=== PATIENT | male | born 1985 | race Hispanic/Latino ===

== ENCOUNTER 2017-08-22 22:33 | Emergency (ER) | payer OTHER ==
[2017-08-22 22:34] VITALS: BMI 20.7
[2017-08-22 22:57] LABS: BASO # 0.04 K/mm3 (0.0-2.0); BASO % 0.3 % (0.0-3.0); EOS # 0.2 (0.0-0.7); EOS % 1.6 % (1.5-5.0); GRAN # 7.97 (1.4-6.5); LYMPH # 4.3 (1.2-3.4); LYMPH % 31.8 % (22.0-35.0); MEAN CELL VOLUME 91.9 fl (80.0-105.0); MEAN CORPUSCULAR HEMOGLOBIN 30.9 pg (25.0-35.0); MEAN CORPUSCULAR HGB CONC 33.7 g/dl (31.0-37.0); MONO % 7.3 % (1.0-6.0); RED CELL DISTRIBUTION WIDTH 13.3 % (11.5-14.5); WHITE BLOOD COUNT 13.5 10^3/ul (4.5-11.0)
[2017-08-22 23:11] LABS: BLOOD UREA NITROGEN 12 mg/dL (7-21); CALCIUM 9.5 mg/dL (8.4-10.5); CARBON DIOXIDE 16 mmol/L (21-33); CHLORIDE 99 mmol/L (98-107); GFR AFRICAN-AMERICAN > 60; GLUCOSE,RANDOM 106 mg/dL (70-110)
--- NOTE | 2017-08-22 23:15 | CT ---
EXAM: CT Head Without Intravenous Contrast CLINICAL HISTORY: 31 years old, male; Signs and symptoms; Altered mental status/memory loss; Confusion or disorientation; Additional info: Seizure TECHNIQUE: Axial computed tomography images of the head/brain without intravenous contrast. All CT scans at this facility use one or more dose reduction techniques, viz.: automated exposure control; ma/kV adjustment per patient size (including targeted exams where dose is matched to indication; i.e. head); or iterative reconstruction technique. COMPARISON: No relevant prior studies available. FINDINGS: Brain: No acute intracranial hemorrhage. No significant white matter disease. No edema. Ventricles: No significant ventriculomegaly. Bones: No acute displaced fracture. Sinuses: Unremarkable as visualized. No acute sinusitis. Mastoid air cells: Unremarkable as visualized. No mastoid effusion. IMPRESSION: No acute intracranial hemorrhage, or suspicious mass effect.
[2017-08-22 23:22] LABS: POTASSIUM 3.3 mmol/L (3.6-5.0); SODIUM 141 mmol/L (132-148)
[2017-08-22] MEDS ORDERED: Sodium Chloride 0.9% 1,000 ML IV STA (23:23)
--- NOTE | 2017-08-23 00:42 | ED PDOC ---
Arrival/HPI - General Chief Complaint: Seizure Time Seen by Provider: 08/22/17 22:41 Historian: Other (girlfriend) - History of Present Illness Narrative History of Present Illness (Text): 08/23/17 22:45 50 year old male, whose past medical history includes IBS and denies history of seizures, presents to the Emergency department s/p witnessed seizure around 9: 45PM. Patient was unresponsive during generalized seizure, bit his tongue, and fell backwards. No noticeable head injuries. Patient's girlfriend reports vomiting and diarrhea through out the day and states she has similar GI symptoms. Patient is currently taking Adderall. Patient's girlfriend reports the seizure lasted for 1 minute and resolved spontaneously. Patient's girlfriend reports him smoking frequently, headache early today, and chronic neck pain, but denies alcohol use, any rash, fevers, chills, chest pain, shortness of breath, abdominal pain, nausea, vomiting, or any other complaint. ROS limited due to patient's state, but answered by girlfriend. Time/Duration: 1-3 hours Symptom Onset: Sudden Activities at Onset: Light Context: Home Past Medical History - Provider Review Nursing Documentation Reviewed: Yes - Infectious Disease Hx of Infectious Diseases: None - Psychiatric Hx Substance Use: No - Anesthesia Hx Anesthesia: No Family/Social History - Physician Review Nursing Documentation Reviewed: Yes Family/Social History: No Known Family HX Smoking Status: Heavy Smoker > 10 Cigarettes Daily Hx Alcohol Use: Yes Frequency of alcohol use: Socially Hx Substance Use: No Allergies/Home Meds Allergies/Adverse Reactions: Allergies No Known Allergies Allergy (Verified 08/22/17 22:34) Home Medications: Home Meds Medication Instructions Recorded Confirmed Amphetamine Salt Combination 90 mg PO DAILY 08/22/17 08/22/17 [Adderall] Review of Systems - Physician Review All systems were reviewed & negative as marked: Yes - Review of Systems Constitutional: absent: Fevers, Other (Chills) Respiratory: absent: SOB Cardiovascular: absent: Chest Pain Gastrointestinal: Diarrhea. absent: Abdominal Pain, Nausea, Vomiting Musculoskeletal: Neck Pain Skin: absent: Rash Neurological: Headache, Seizure Physical Exam Vital Signs Reviewed: Yes Vital Signs Temp Pulse Resp BP Pulse Ox 08/23/17 01:18 19 99 08/23/17 00:56 98.0 F 98 H 17 133/71 99 08/22/17 22:49 97.8 F 105 H 20 142/97 H 95 Temperature: Afebrile Blood Pressure: Hypertensive Pulse: Tachycardic Respiratory Rate: Normal Appearance: Positive for: Well-Appearing, Non-Toxic, Comfortable Pain Distress: None Mental Status: Positive for: Lethargic (response to stimuli and follows commands ) Finger Stick Blood Glucose: 101 - Systems Exam Head: Present: Atraumatic, Normocephalic Pupils: Present: PERRL Extroacular Muscles: Present: EOMI Conjunctiva: Present: Normal Mouth: Present: Dry, Other (slight bite to tongue ) Neck: Present: Normal Range of Motion Respiratory/Chest: Present: Clear to Auscultation, Good Air Exchange. No: Respiratory Distress, Accessory Muscle Use Cardiovascular: Present: Regular Rate and Rhythm, Normal S1, S2. No: Murmurs Abdomen: Present: Normal Bowel Sounds. No: Tenderness, Distention, Peritoneal Signs Back: Present: Normal Inspection Upper Extremity: Present: Normal Inspection. No: Cyanosis, Edema Lower Extremity: Present: Normal Inspection. No: Edema Neurological: Present: GCS=15, CN II-XII Intact Skin: Present: Normal Color, Diaphoretic, Pale. No: Rashes Psychiatric: Present: Alert, Normal Insight, Lethargic, Other (slightly Posticital after seizure ) Medical Decision Making ED Course and Treatment: 08/23/17 22:50 Impression: 31 year old male presents s/p witnessed seizure. Patient was unresponsive and reports slight bite on tongue. Plan: -- Labs -- CT head -- IV fluids -- Urinalysis -- Reassess and disposition Progress Notes: EXAM: CT Head Without Intravenous Contrast Dictated and Authenticated by: Anne Cornejo MD 08/22/2017 11:14 PM IMPRESSION: No acute intracranial hemorrhage, or suspicious mass effect. 08/23/17 01:05 On re-evaluation, patient is back to normal mental status and wants to leave. Patient denies any headache, fever, or neck stiffening. doubt meningitis or SAH. Will not start on antiepileptics because first time having seizure. May be possible drug use. Patient coincidentally could not give urine. I have discussed the results and plan with the patient, who expresses understanding. Patient in agreement with plan to be discharged home. Patient is stable for discharge. Patient was instructed to follow up with neurologist or return if symptoms worsen or new concerning symptoms arise. instructed not to drive until cleared by neurology 08/23/17 05:58 Reassessment Condition: Improved - Lab Interpretations Lab Results: 08/22/17 22:48 08/22/17 22:48 Lab Results 08/22/17 22:48: Sodium 141, Potassium 3.3 L, Chloride 99, Carbon Dioxide 16 L, Anion Gap 29 H, BUN 12, Creatinine 1.0, Est GFR ( Amer) > 60, Est GFR ( Non-Af Amer) > 60, Random Glucose 106, Calcium 9.5 08/22/17 22:48: WBC 13.5 H, RBC 4.46, Hgb 13.8 L, Hct 41.0 L, MCV 91.9, MCH 30.9 , MCHC 33.7, RDW 13.3, Plt Count 317, MPV 9.0, Gran % 59.0, Lymph % (Auto) 31.8 , [place] % (Auto) 7.3 H, Eos % (Auto) 1.6, Baso % (Auto) 0.3, Gran # 7.97 H, Lymph # 4.3 H, [place] # 1.0 H, Eos # 0.2, Baso # 0.04 I have reviewed the lab results: Yes - RAD Interpretation Radiology Orders: 08/22/17 22:48 HEAD W/O CONTRAST [CT] Stat - Medication Orders Current Medication Orders: Discontinued Medications Sodium Chloride (Sodium Chloride 0.9%) 1,000 mls @ 999 mls/hr IV .Q1H1M STA Stop: 08/23/17 00:23 Last Admin: 08/22/17 23:25 Dose: 999 mls/hr eMAR Start Stop Document 08/22/17 23:25 GMD (Rec: 08/22/17 23:25 GMD [id number]) Intravenous Solution Start Date 08/22/17 Start Time 23:25 End Date 08/23/17 End time 00:26 Total Infusion Time 61 - Scribe Statement The provider has reviewed the documentation as recorded by the Scribe Helga Rahman Provider Scribe Attestation: All medical record entries made by the Scribe were at my direction and personally dictated by me. I have reviewed the chart and agree that the record accurately reflects my personal performance of the history, physical exam, medical decision making, and the department course for this patient. I have also personally directed, reviewed, and agree with the discharge instructions and disposition. Disposition/Present on Arrival - Present on Arrival Any Indicators Present on Arrival: No History of DVT/PE: No History of Uncontrolled Diabetes: No Urinary Catheter: No History of Decub. Ulcer: No History Surgical Site Infection Following: None - Disposition Have Diagnosis and Disposition been Completed?: Yes Diagnosis: Seizure Disposition: HOME/ ROUTINE Disposition Time: 01:08 Patient Plan: Discharge Condition: IMPROVED Discharge Instructions (ExitCare): New-Onset Seizure in Adults (ED) Additional Instructions: Avoid any driving until cleared by Neurology. some seizures can be medication induced. please followup with a Neurologist to help determine the cause you may need an outpatient MRI as CT scans cannot mixing picker tender everything. Referrals: Meredith Aiken, [Primary Care Provider] - Follow up with primary Catrachito Lozoya MD [Staff Provider] - Follow up with primary (as soon as possible for seizure workup. ) Forms: [employer] (Dutch)
[2017-08-23 00:57] VITALS: BP 133/71; PULSE 98; TEMP 98; O2SAT 99
[2017-08-23 01:19] VITALS: RESP 19
== END 2017-08-23 01:19 | disposition home or self-care (01) ==
LOC: ED 22:33
DX: R56.9 Unspecified convulsions (principal)
CPT/HCPCS: 70450; 80048; 85025; 96360; 99285; J7040